=== PATIENT | female | born 1960 | race Caucasian/White ===

== ENCOUNTER 2019-04-02 11:54 | Observation (INO) ==
[2019-04-02] MEDS ORDERED: LIDOCAINE HCL 1% 20 ML VIAL ONE (12:53)
[2019-04-02] MEDS ORDERED: BACITRACIN INJ 50,000 UNIT VIAL ONE (12:54)
[2019-04-02] MEDS ORDERED: BACITRACIN OINT 0.9 GM PKT ONE (12:54)
[2019-04-02] MEDS ORDERED: CLINDAMYCIN 600 MG in DEXTROSE 5% 50 ML IV ONE (12:59)
[2019-04-02] MEDS ORDERED: MIDAZOLAM HCL 5 MG/ML 1 ML VIAL ONE (13:02)
[2019-04-02] MEDS ORDERED: fentaNYL citrate 100 MCG/2 ML VIAL ONE ×3 (13:03→15:43)
[2019-04-02] MEDS ORDERED: CLINDAMYCIN PHOS 300 MG/2 ML VIAL ONE (13:06)
--- NOTE | 2019-04-02 13:26 | History & Physical Bridge Note ---
Date of Service April 02, 2019 History & Physical Bridge Note I have examined the patient, reviewed the History & Physical and in the interval since the performance of the History & Physical I have noted the following changes of clinical significance: no changes noted. I reviewed the indications, procedure, risks and alternatives of biventricular ICD implantation with her and her family who are present. They all understand and she agrees to proceed. Consent obtained. We discussed pacemaker versus ICD and we will implant an ICD. We also discussed conscious sedation and she is agreeable. Consent obtained.
--- NOTE | 2019-04-02 13:28 | Pre Anesthesia Assessment ---
Date of Service April 02, 2019 Pre Sedation Assessment Vital Signs Temp Pulse Resp BP Pulse Ox 04/02/19 12:16 36.8 C 87 17 142/70 H 92 Cardiovascular RRR, no murmur, no edema Respiratory normal respiratory effort, lungs clear to auscultation Pre-Sedation Airway Assessment Smoking Status: Former smoker Hx Sleep Apnea: No Hx Difficult Intubation: No Short, Thick Neck: No Thyromental Distance: > or= 3.5 Finger Breadths Oral Cavity: + Dentures Mallampati Class: III ASA: ASA3 NPO Status Date of Last Intake of Fluids: 04/01/19 Time of Last Intake of Fluids: 21:00 Date of Last Intake of Solid Food: 04/01/19 Time of Last Intake of Solid Foods: 21:00 Procedure Planning Contraindications for Sedation: none Current Medications Reviewed: Yes Notes The planned sedation has been discussed with the patient. Informed Consent was obtained. I have identified the patient, determined the appropriateness of sedation and have assessed the patient immediately prior to the procedure. All medicine(s) and interventions are by my order.
[2019-04-02] MEDS ORDERED: MIDAZOLAM HCL 1 MG/ML 2ML VIAL ONE ×3 (15:03→15:58)
--- NOTE | 2019-04-02 16:37 | Operative Report ---
PG Post Operative Report Pre & Post Diagnosis Operation Date: 04/02/19 13:00 Preoperative diagnosis: Class III congestive heart failure, nonischemic cardiomyopathy with an ejection fraction of 35%, left bundle branch block Postoperative diagnosis: Same I identified the patient and participated in the time-out.: Yes Procedure Operation Date: 04/02/19 13:00 Actual Procedures p ICD Insertion Single or Dual(Left) - Vin Thao MD s Lead LV (No Priopr Implant) - Vin Thao MD Surgeon Vin Thao MD Multimedia Programmer None Estimated Blood Loss 30 Findings See Below Coronary sinus access was difficult but successful, there was a large inferior branch but no mid posterior branch identified. Adequate position was obtained for the left ventricular lead. Specimens None Anesthesia Type Local Complications none Disposition Accompanied Patient To Recovery: Yes Disposition: Recovery Room Description of Procedure After obtaining informed consent for the procedure, the patient was brought to the laboratory and prepped and draped in the standard sterile manner. The left prepectoral region was anesthetized with 1% lidocaine local anesthetic and dye was injected the left arm IV site to opacify the left subclavian vein. The subclavian vein was identified and found to be free of obstruction. Left axillary venipuncture was performed by percutaneous technique and a guidewire placed through the left subclavian vein into the superior vena cava. The area was further infiltrated with 1% lidocaine local anesthetic and a 6 cm incision was made parallel to the left clavicle and 2 cm below it and carried down to the anterior pectoralis fascia. An ICD pocket was formed by blunt dissection anterior to the pectoralis fascia and a bacitracin-soaked sponge (50,000 units in 50 cc normal saline solution) was placed in the pocket. A 10.5 [employer] lead introducer was placed over the guidewire into the left subclavian vein, the dilator and guidewire were removed and a bipolar active fixation steroid tipped ventricular ICD lead was advanced through the introducer into the superior vena cava. A guidewire was placed through the introducer and the introducer was stripped from the lead and guidewire. An 8 [employer] lead introducer was placed over the guidewire into the left subclavian vein, the dilator and guidewire were removed and a bipolar active fixation steroid tipped atrial lead was advanced through the introducer into the superior vena cava. A guidewire was placed back through the introducer and the introducer was stripped from the lead and guidewire. Using a curved stylette the ventricular lead was advanced through the right ventricular outflow tract into the pulmonary artery and then using a straight stylette was positioned in the right ventricular apex. In the apex the measurements were not ideal in several locations. The lead was therefore repositioned to the lower intraventricular septum. The screw was extended fixing the lead in position. Pacing and sensing thresholds were evaluated in bipolar configuration and are recorded on the implant data sheet. Diaphragmatic pacing was evaluated at an 8 V bipolar output as indicated on the data sheet. Using a curved stylette the atrial lead was positioned in the region of the atrial appendage and the screw extended fixing the lead in position. Pacing and sensing thresholds were evaluated in bipolar configuration and are recorded on the implant data sheet. Diaphragmatic pacing was evaluated at an 8 V bipolar output as indicated on the data sheet. Once the leads were in position they were attached to the anterior pectoralis fascia using 1 suture of 2-0 silk around each lead collar. The short guidewire was exchanged for a long guidewire and a [place] coronary sinus sheath was advanced to position in the right atrium. The curved obturator was placed through the sheath and using x-ray dye and a small right angle inner catheter the os of the coronary sinus was identified. A guidewire was placed through the introducer into the coronary sinus and the Anni sheath was advanced into the coronary sinus. Dye was injected in various projections to obtain a coronary sinus angiogram. A good vessel was identified although lower than ideal and a 0.014 inch guidewire was advanced into this vessel. A quadripolar coronary sinus catheter was advanced over the guidewire into good distal position. The left ventricular pacing threshold was evaluated in various configurations, as recorded on the implant data sheet. Diaphragmatic pacing was evaluated at an 8 V output, as indicated on the data sheet. Once this lead was in position the introducer system was removed from the lead and the lead was attached to the anterior pectoral fascia using 2 sutures of 2-0 silk around the lead collar. An additional suture of 2-0 silk was placed around each of the atrial and ventricular lead collars as well. The bacitracin-soaked sponge was removed from the pocket, hemostasis was obtained, the ICD was attached to the leads and placed in the pocket with the leads coiled beneath it. The incision was closed with a running double subcutaneous closure of 3-0 Vicryl absorbable suture, followed by running subcuticular skin closure of 4-0 Vicryl absorbable suture. Bacitracin ointment was placed on the incision and a dressing applied. I attest to the content of the Intraoperative Record and any orders documented therein. Any exceptions are noted below.
[2019-04-02] MEDS ORDERED: ACETAMINOPHEN 325 MG TAB PO PRN (16:41)
[2019-04-02] MEDS ORDERED: NITROGLYCERIN SL 0.4 MG/TAB TAB SL PRN (16:43)
--- NOTE | 2019-04-02 17:07 | Post Anesthesia Assessment ---
Date of Service April 02, 2019 Post Sedation Assessment Vital Signs Temp Pulse Resp BP Pulse Ox 04/02/19 16:45 36.8 C 94 H 17 118/81 94 04/02/19 16:40 36.8 C 91 H 17 108/82 94 04/02/19 16:35 36.8 C 92 H 17 117/78 94 04/02/19 16:30 36.8 C 87 17 122/84 94 04/02/19 12:16 36.8 C 87 17 142/70 H 92 Recovery Score Activity: Moves 4 extremities Respiration: Deep Breath/Cough Circulation: +/-20% PreAnes Value Consciousness: Fully Awake Oxygen Saturation: > 92% On Room Air Post Anesthesia Score: 10 Discharge Sedation Level of Care: Fast Track Phase II Post Sedation Plan On clinical assessment, the patient appears to have tolerated the sedation without complications. Patient is recovering as anticipated. Patient will continue to be monitored by nursing and may be discharged when sedation discharge criteria are met per below protocol. Upon Completions of procedure up to 15 minutes continue every 5 minute vital signs and the P.A.R. score; then discharge to a Phase I or Fast Track to Phase II per the following guidelines: * Discharge Patient to appropriate Phase II area if PAR is 8 or greater or return to pre- procedure baseline. The post - procedure orders will be as directed. * If PAR score is less than 8 or not return to pre-procedure baseline then patient will follow Phase I monitoring till PAR is reached for Phase II. The Phase I may be done in procedure room or may call to secure a Phase I area. * If naloxone or flumazenil are used for reversal, hold in Phase I for continued monitoring from when last reversal dose was given for a minimum of 60 minutes or longer pending the nurse and/or physician discretion of patient condition before discharge to Phase II. Please call the Sedation Physician to re-evaluate and complete post-note for discharge to Phase II area. Do NOT discharge from procedure sedation or Phase 1 until post- sedation evaluation note is complete by procedure /sedation MD Sedation Discharge Instructions to be given to the patient at discharge to home.
[2019-04-02] MEDS: KETOROLAC TROMETHAMINE 10 MG TABLET PO PRN (18:01)
[2019-04-02] MEDS: carvediloL 3.125 MG TAB PO SCH (20:25)
[2019-04-03] MEDS: KETOROLAC TROMETHAMINE 10 MG TABLET PO PRN ×2 (01:35→08:03)
[2019-04-03] MEDS: carvediloL 3.125 MG TAB PO SCH (08:02)
--- NOTE | 2019-04-03 08:04 | XRay Report ---
XR chest 2V PA/lateral CLINICAL HISTORY: 58 years-old Female presenting with ICD placement, evaluate for pneumothorax. TECHNIQUE: PA and lateral views of the chest were obtained. COMPARISON: 06/07/2013. FINDINGS: Left subclavian implanted cardiac defibrillator with leads to the right atrial appendage, right ventr icular apex, and coronary sinus. Several external leads overlie the thorax degrading image quality. A therosclerosis of the aortic arch. Cardiac silhouette normal in size. Lungs and pleural spaces clear. Degenerative changes of the thoracic spine. Upper abdomen normal. IMPRESSION: 1. Appropriately positioned left subclavian 3-lead ICD. No pneumothorax. ACT 112: Negative or not required by law. Electronically signed by: Moris Agustin M.D. 04/03/2019 8:03 AM
[2019-04-03] MEDS ORDERED: ASPIRIN 81 MG ECTAB PO SCH (09:00)
[2019-04-03] MEDS ORDERED: FUROSEMIDE 20 MG TAB PO SCH (09:00)
--- NOTE | 2019-04-03 09:12 | Cardiology Progress Note ---
Date of Service April 03, 2019 Assessment & Plan (1) History of implantable cardioverter-defibrillator (ICD) placement: She is doing well postop day #1 following ICD implantation. The x-ray shows stable lead position without a pneumothorax. She is an excellent biventricular paced complex. If her measurements are good through the device she is stable for discharge today. Subjective She feels very well, she is having some incisional discomfort but no chest discomfort. Overall she thinks she feels a little bit better in a nonspecific way since pre-implant. Physical Exam Physical Exam: The incision is clean and dry, there is slight ecchymosis but no bleeding, or erythema. Results & Data Vital Signs (Past 12 Hours) Vital Signs Temp Pulse Pulse Resp BP Pulse Ox 04/03/19 08:20 36.9 C 83 19 123/78 95 04/03/19 08:00 81 04/03/19 05:17 37.1 C 72 18 112/76 94 04/03/19 00:29 37 C 66 24 94/66 L 95 04/02/19 22:00 77 18 110/70 94 04/02/19 21:30 86 20 110/75 94 04/02/19 21:00 84 18 105/72 93 Diagnostic Findings Electrocardiogram post implant: Excellent (near normal) biventricular paced complex. Chest x-ray: Stable lead position with no pneumothorax Telemetry: Normal pacemaker function with atrial sensing and ventricular pacing predominantly. Device evaluation: Pending PG Care Time/CCT Total # of Minutes Spent Total Time Spent with Patient: Total time spent is greater than 50% in coordination of care (as documented) at patient's floor/unit and/or counseling patient:
--- NOTE | 2019-04-03 10:14 | Electrocardiogram Report ---
Test Reason : Blood Pressure : / mmHG Vent. Rate : 085 BPM Atrial Rate : 085 BPM P-R Int : 172 ms QRS Dur : 106 ms QT Int : 398 ms P-R-T Axes : 018 095 -28 degrees QTc Int : 473 ms Atrial-sensed ventricular-paced rhythm Abnormal ECG When compared with ECG of 07-JUN-2013 12:31, Electronic ventricular pacemaker has replaced Sinus rhythm Confirmed by Wicho Wharton ([id number]) on 04/03/2019 10:14:10 AM Referred By: Vin Thao Confirmed By:Wicho Wharton
== END 2019-04-03 10:17 | disposition home or self-care (01) ==
LOC: EP 11:54 → 2S 11:54
PROC: EPB.ICD (2019-04-02 13:00)